=== PATIENT | male | born 1990 | race African-American/Black ===

== ENCOUNTER 2024-11-05 02:00 | Emergency (ER) | payer OTHER ==
[~2024-11-05] VITALS: Ht 185.4 cm; Wt 121.6 kg
[2024-11-05 02:02] VITALS: BP 132/92
[2024-11-05] MEDS ORDERED: METOCLOPRAMIDE HCL 10 MG/2 ML VIAL ONE (02:31)
[2024-11-05] MEDS: METOCLOPRAMIDE HCL 10 MG/2 ML VIAL IM ONE (02:35)
[2024-11-05] MEDS ORDERED: KETOROLAC TROMETHAMINE 30 MG INJ ONE (02:53)
[2024-11-05] MEDS: KETOROLAC TROMETHAMINE 30 MG INJ IM ONE (03:00)
[2024-11-05 03:50] VITALS: BP 128/74; O2SAT 98
== END 2024-11-05 03:49 | disposition home or self-care (01) ==
LOC: ER 02:02
DX: G43.909 Migraine, unspecified, not intractable, without status migrainosus (principal); J45.909 Unspecified asthma, uncomplicated
CPT/HCPCS: A4606; A4663; J1885; J2765